=== PATIENT | male | born 1950 | race Caucasian/White ===

== ENCOUNTER 2016-12-26 15:11 | Emergency (ER) | payer BC ==
[2016-12-26 15:22] VITALS: BP 125/79
--- NOTE | 2016-12-26 16:45 | UC ---
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 Negative: Difficulty Breathing, Fever, Chills, Throat Tightening, Bruising, Red Streaks - Allergy/Home Medications Allergies/Adverse Reactions: Allergies Allergy/AdvReac Type Severity Reaction Status Date / Time No Known Allergies Allergy Verified 12/26/16 15:22 Home Medications: Home Medications Bimatoprost 0.01% OPHTH (NF) [Lumigan 0.01% OPHTH (NF)] 1 drop BOTH EYES QPM [History Confirmed 12/26/16] Finasteride [Proscar] 5 mg PO BID 12/26/16 [History Confirmed 12/26/16] Lansoprazole [Prevacid] 30 mg PO DAILY 12/26/16 [History Confirmed 12/26/16] Midodrine HCl 10 mg PO TID 12/26/16 [History Confirmed 12/26/16] PARoxetine HCL TAB* [Paxil TAB*] 20 mg PO BEDTIME 12/26/16 [History Confirmed ] Review of Systems Constitutional: Negative Skin: Rash Eyes: Negative ENT: Negative Respiratory: Negative Cardiovascular: Negative Gastrointestinal: Negative Genitourinary: Negative Motor: Negative Neurovascular: Negative Musculoskeletal: Negative Neurological: Negative Psychological: Negative All Other Systems Reviewed And Are Negative: Yes PMH/Surg Hx/FS Hx/Imm Hx Previously Healthy: Yes Cardiovascular History Of: Reports: Cardiac Disorders - 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; pace maker (PM) - Surgical History Surgical History: Yes Surgery Procedure, Year, and Place: cardiac 2012, PM; gallbladder - Family History Known Family History: Negative: Blood Disorder - Social History Occupation: Retired Lives: With Family Alcohol Use: Rare Substance Use Type: None Smoking Status (MU): Never Smoked Tobacco Physical Exam Triage Information Reviewed: Yes Appearance: Well-Appearing, No Pain Distress, Well-Nourished Vital Signs: Initial Vital Signs Temp 98.6 F 12/26/16 15:15 Pulse 75 12/26/16 15:15 Resp 18 12/26/16 15:15 BP 125/79 12/26/16 15:15 Pulse Ox 99 12/26/16 15:15 Vital Signs Reviewed: Yes Eye Exam: Normal ENT Exam: Normal ENT: Positive: Normal ENT inspection, Hearing grossly normal, Pharynx normal, TMs normal Dental Exam: Normal Neck exam: Normal Neck: Positive: Supple, Nontender Respiratory Exam: Normal Respiratory: Positive: Chest non-tender, Lungs clear, Normal breath sounds, No respiratory distress, No accessory muscle use Cardiovascular Exam: Normal Cardiovascular: Positive: RRR, No Murmur, Pulses Normal Abdominal Exam: Normal Abdomen Description: Positive: Nontender, No Organomegaly Musculoskeletal Exam: Normal Musculoskeletal: Positive: Strength Intact, ROM Intact Neurological Exam: Normal Psychological Exam: Normal Psychological: Positive: Normal Response To Family Skin: Positive: rashes Course/Dx - Differential Diagnoses - Skin Complaint Differential Diagnoses: Cellulitis, Impetigo, MRSA, Poison M[place]a, Poison [place], Scabies, Tick Born Illness, Tinea, Varicella Zoster - Diagnoses Provider Diagnoses: VARICELLA ZOSTER Discharge - Discharge Plan Condition: Stable Disposition: HOME Prescriptions: Famciclovir [Famvir] 500 mg PO TID #21 tab Patient Education Materials: Shingles (ED) Referrals: Nicola Brown DO [Primary Care Provider] -
== END 2016-12-26 16:04 | disposition home or self-care (01) ==
LOC: UCCORT 15:11
DX: B02.9 Zoster without complications (principal); Z95.0 Presence of cardiac pacemaker; Z90.49 Acquired absence of other specified parts of digestive tract
CPT/HCPCS: 99212; G0463